=== PATIENT | female | born 1965 | race Caucasian/White ===

== ENCOUNTER 2023-12-10 18:34 | Emergency (ER) | payer OTHER ==
[~2023-12-10 18:34] MED LIST: Iopamidol-370 76% 500 ML MDV (1 ML CHARGE) ONE
[2023-12-10] MEDS ORDERED: Ketorolac Tromethamine 30 MG (1 mL) VIAL ONE (19:09)
[2023-12-10] MEDS ORDERED: Cefepime 2 GM VIAL ONE (19:09)
[2023-12-10] MEDS ORDERED: Acetaminophen 500 MG TAB ONE (19:09)
[2023-12-10] MEDS ORDERED: Sodium Chloride 0.9% 100 ML ONE (19:10)
[2023-12-10 19:27] LABS: #Basophils 0.1 thou/uL (0.0-0.2); #Eosinphils 0.1 thou/uL (0.0-0.7); #Neutrophils 7.6 thou/uL (1.40-6.50); %Basophils 0.7 % (0.0-1.0); %Lymphocytes 4.5 % (21.0-51.0); %Monocytes 11.2 % (0.0-10.0); %Neutrophils 82.2 % (42.0-75.0); Hematocrit 44.1 % (36.0-47.0); Hemoglobin 14.5 g/dL (12.0-16.0); Mean Corpuscular HGB CONC 32.9 g/dL (32.0-36.0); Mean Corpuscular Hemoglobin 29.6 pg (27.0-31.0); Mean Platelet Volume 9.7 fL (7.4-10.4); Platelet Count 316 10x3/uL (130-400); RBC Distribution Width 13.7 % (11.5-14.5); White Blood Cell (WBC) Count 9.2 10x3/uL (4.8-10.8)
[2023-12-10 19:40] LABS: PTT 30.4 sec (22.9-36.1)
[2023-12-10 19:51] LABS: ALT (SGPT) 16 U/L (8-55); AST (SGOT) 21 U/L (5-34); Albumin 4.4 g/dL (3.5-5.0); Alkaline Phosphatase 92 U/L (40-110); Anion Gap 15 mmol/L (10-20); BUN (Urea Nitrogen) 15 mg/dL (9.8-20.1); Bilirubin, Total 0.3 mg/dL (0.2-1.2); Calc. Creatinine Clearance 0 mL/min (70-130); Calcium 9.5 mg/dL (7.8-10.44); Carbon Dioxide 21 mmol/L (22-29); Chloride 102 mmol/L (98-107); Estimated GFR 83; Globulin 3.7 g/dL (2.4-3.5); Glucose 95 mg/dL (70-105); Lipase 36 U/L (8-78); Potassium 4.1 mmol/L (3.5-5.1); Protein, Total 8.1 g/dL (6.0-8.3); Sodium 134 mmol/L (136-145)
[2023-12-10] MEDS ORDERED: Vancomycin 1 GM/200 ML (FROZEN) BAG ONE (20:08)
[2023-12-10 20:35] LABS: SARS-CoV-2 NAA Rapid Test DETECTED (NotDetected)
[2023-12-10 21:33] LABS: Bilirubin Negative (Negative); Blood, Urine Negative (Negative); CAUTI Indications for Culture Pelvic or flank pain; Clarity Clear (Clear); Glucose, Urine (Dipstick) Normal (Negative); Ketone, Urine Negative (Negative); Leukocyte Negative Leu/uL (Negative); Nitrite Negative (Negative); Protein, Urine (Dipstick) Negative (Neg-Trace); RBC/HPF 0-3 HPF (0-3); Specific Gravity, Urine 1.015 (1.002-1.036); Urobilinogen Normal mg/dL (Less than 2); WBC/HPF 0-3 HPF (0-3); pH, Urine 6.5 (5.0-9.0)
[2023-12-10 21:45] LABS: Bacteria/HPF 1+ HPF (None Seen)
[2023-12-10 21:46] LABS: Urine Culture Reflex No No
== END 2023-12-10 22:15 | disposition home or self-care (01) ==
LOC: ERS 18:34
DX: U07.1 COVID-19 (principal)
CPT/HCPCS: 74177; 80053; 81001; 83605; 83690; 85025; 85610; 85730; 87040; 87086; 93005; 94760; 96365; 96367; 96375; J0692; J1885; J3370-JW; J3490; Q9967

== ENCOUNTER 2024-04-03 14:29 | Outpatient (CLI) | payer OTHER | END 2024-04-03 14:30 | disposition home or self-care (01) | LOC: BICMAMMO 14:29 | PROVIDERS: ATTEND Family Medicine | DX: Z12.31 Encounter for screening mammogram for malignant neoplasm of breast (principal); Z13.820 Encounter for screening for osteoporosis; M85.852 Other specified disorders of bone density and structure, left thigh; Z80.3 Family history of malignant neoplasm of breast | CPT/HCPCS: 77063; 77067; 77080 ==

== ENCOUNTER 2024-08-03 19:14 | Emergency (ER) | payer OTHER ==
[2024-08-03] MEDS ORDERED: Boostrix 0.5 ML (Tdap) VIAL (>/=7 yrs of age) ONE (20:13)
[2024-08-03] MEDS ORDERED: Ondansetron ODT 4 MG TAB ONE (21:17)
[2024-08-03] MEDS ORDERED: Ibuprofen 200 MG TAB ONE (23:26)
[2024-08-04] MEDS ORDERED: Cyclobenzaprine 10 MG TAB ONE (00:20)
== END 2024-08-04 00:33 | disposition home or self-care (01) ==
LOC: ERS 19:14
DX: S16.1XXA Strain of muscle, fascia and tendon at neck level, initial encounter (principal); S00.03XA Contusion of scalp, initial encounter; I10 Essential (primary) hypertension; Z55.6 Problems related to health literacy; W01.10XA Fall on same level from slipping, tripping and stumbling with subsequent striking against unspecified object, initial encounter; Y92.096 Garden or yard of other non-institutional residence as the place of occurrence of the external cause
CPT/HCPCS: 70450; 72125; 72128; 90471; 90715; Q0162

== ENCOUNTER 2024-08-13 13:10 | Outpatient (CLI) | payer OTHER | END 2024-08-13 13:11 | disposition home or self-care (01) | LOC: CT 13:10 | PROVIDERS: ATTEND Family Medicine | DX: R51.9 Headache, unspecified (principal) | CPT/HCPCS: 70450 ==